=== PATIENT | male | born 1990 | race American Indian/Alaskan Native ===

== ENCOUNTER 2021-02-26 20:41 | Emergency (ER) | payer SELFPAY ==
[2021-02-26 21:18] VITALS: BP 156/100
[2021-02-26] MEDS ORDERED: ASPIRIN 81 MG TAB CHEW PO ONE (21:20)
--- NOTE | 2021-02-26 21:23 | Event Note ---
ED Screening Note Date of service: 02/26/21 Time: 21:22 ED Screening Note: 30-year-old male patient presents emergency department with complaints of pleuritic chest pain with associated dyspnea starting yesterday. No venous thromboembolism risk factors identified on history although on further interrogation he does endorse intermittent proximal left calf pain. No known history of coronary artery disease. No preceding trauma. Vital signs are stable. General: Awake, appropriately interactive, no acute distress. Neck: Supple. Full range of motion intact. Cardiovascular: Normal peripheral perfusion. Pulmonary: No respiratory distress. Patient is speaking normally without use of accessory muscles. Skin: No apparent rashes or lesions. Neurological: No facial asymmetry. Speech is clear. Follows commands. Patient is alert and oriented. Musculoskeletal: Moves all four extremities spontaneously with normal range of motion. Psych: Cooperative. Appropriate mood and affect. D-Dimer obtained; low pretest probability for venous thromboembolism. I have greeted and performed a focused rapid initial assessment of this patient. A comprehensive ED assessment and evaluation of the patient, analysis of all test results, and completion of the medical decision-making process will be c onducted by additional ED providers. This initial assessment/diagnostic orders/clinical plan/treatment(s) is/are subject to change based on patients health status, clinical progression and re-assessment. Further treatment and workup at subsequent clinical provider's discretion. Patient/guardian urged not to elope from the ED as their condition may be serious if not clinically assessed and managed.
[2021-02-26 21:41] LABS: Basophils % (Auto) 0.3 % (0.0-1.8); Eosinophils # (Auto) 0.1 K/mm3 (0.0-0.4); Hematocrit 44.8 % (35.5-45.6); Hemoglobin 14.5 gm/dl (11.8-15.2); Lymphocytes # (Auto) 1.9 K/mm3 (1.2-5.4); Lymphocytes % (Auto) 26.6 % (13.4-35.0); Mean Corpuscular HGB Conc 32 % (32-34); Mean Corpuscular Volume 82 fl (84-94); Monocytes # (Auto) 0.7 K/mm3 (0.0-0.8); Monocytes % (Auto) 9.5 % (0.0-7.3); Platelet Count 253 K/mm3 (140-440); Red Blood Count 5.49 M/mm3 (3.65-5.03); Red Cell Distribution Width 15.3 % (13.2-15.2)
--- NOTE | 2021-02-26 21:47 | XRay Report ---
CHEST 2 VIEWS INDICATION / CLINICAL INFORMATION: chest pain. COMPARISON: None available. FINDINGS: SUPPORT DEVICES: None. HEART / MEDIASTINUM: No significant abnormality. LUNGS / PLEURA: Patchy bilateral airspace disease No pneumothorax. ADDITIONAL FINDINGS: No significant additional findings. IMPRESSION: Patchy bilateral airspace disease is present. No prior exams for comparison Signer Name: Ez Tong MD FACR Signed: 02/26/2021 9:43 PM Workstation Name: [id number]
[2021-02-26 22:09] LABS: Alanine Aminotransferase 17 units/L (7-56); Albumin 4.2 g/dL (3.9-5); BUN/Creatinine Ratio 11; Blood Urea Nitrogen 11 mg/dL (9-20); Calcium 9.3 mg/dL (8.4-10.2); Hemolysis Index 11
[2021-02-27] MEDS ORDERED: LIDOCAINE-MPF (1%) 10 MG/1 ML VIAL 5 ML INFILTRATI ONE (01:26)
[2021-02-27] MEDS ORDERED: AZITHROMYCIN 250 MG TAB PO ONE (01:26)
--- NOTE | 2021-02-27 01:26 | Emergency Department Report ---
ED Chest Pain HPI - General Chief Complaint: Chest Pain Stated Complaint: CHEST PAIN/SOB Source: patient Mode of arrival: Ambulatory Limitations: No Limitations - History of Present Illness Initial Comments: Patient is a 30-year-old -[place] male with no past medical history presents to the ED with complaint of acute onset persistent dry cough, pleuritic chest pain, shortness of breath and generalized weakness for the last 1 week. Patient states that the chest pain is especially constant and that the shortness of breath is worse with any movement or exertion. Patient states that in the last 2 days, his symptoms have been worse especially while at work. Patient states that in the last 12 hours he has been feeling more weaker with persistent pleuritic chest pain. Patient denies dizziness, headache, nausea and vomiting, fever, chills, abdominal pain, diarrhea, dysuria, urinary frequency and urgency, sore throat, nasal and sinus congestion, syncope, palpitations, change in vision or body aches and pains. MD Complaint: chest pain (Substernal chest pain), other (shortnesness of breath; dry cough; generalized weakness) -: Sudden, week(s) (1) Onset: during rest, during exertion, awoke with symptoms Pain Location: substernal Pain Radiation: none Severity: moderate Severity scale (0 -10): 4 Quality: tightness, dull Consistency: constant Improves With: nothing Worsens With: other (Cough) re: dyspnea, other (Generalized weakness). denies: nausea, vomting, diaphoresis, sense of impending doom Other Symptoms: cough, other (Generalized weakness). denies: fever, syncope, rash, acid taste in mouth, leg swelling, palpitations, burping Treatments Prior to Arrival: none - Related Data On Oral Contraceptives: No Previous Rx's Medication Instructions Recorded Last Taken Type Albuterol Sulfate [Proventil Hfa] 1 - 2 puff IH Q6H PRN #1 hfa.aer.ad 02/27/21 Unknown Rx Benzonatate [Tessalon Perles] 100 mg PO Q8HR #30 capsule 02/27/21 Unknown Rx Ibuprofen [Motrin] 600 mg PO Q8H PRN #30 tablet 02/27/21 Unknown Rx levoFLOXacin [Levaquin] 750 mg PO QDAY #7 tablet 02/27/21 Unknown Rx Heart Score - HEART Score History: Slightly suspicious EKG: Normal Age: < 45 Risk factors: No known risk factors Troponin: < normal limit HEART Score: 0 - EKG Read Time Time EKG Completed: 21:22 EKG Read Time: 21:24 (NSR, 88 bpm; Long QT interval) - Critical Actions Critical Actions: 0-3 pts:0.9-1.7%risk of adverse cardiac event.Candidate for discharge ED Review of Systems ROS: Stated complaint: CHEST PAIN/SOB Other details as noted in HPI Constitutional: malaise, weakness. denies: chills, fever Eyes: denies: eye pain, eye discharge, vision change ENT: denies: ear pain, throat pain Respiratory: cough, shortness of breath, SOB with exertion. denies: wheezing Cardiovascular: chest pain (Substernal chest pain). denies: palpitations, dyspnea on exertion, orthopnea, syncope, paroxysmal nocturnal dyspnea Endocrine: no symptoms reported Gastrointestinal: denies: abdominal pain, nausea, vomiting, diarrhea Genitourinary: denies: urgency, dysuria Musculoskeletal: denies: back pain, joint swelling, arthralgia Skin: denies: rash, lesions Neurological: denies: headache, weakness, paresthesias Psychiatric: denies: anxiety, depression Hematological/Lymphatic: denies: easy bleeding, easy bruising ED Past Medical Hx - Medications Home Medications: Home Medications Medication Instructions Recorded Confirmed Last Taken Type Albuterol Sulfate [Proventil Hfa] 1 - 2 puff IH Q6H PRN #1 hfa.aer.ad 02/27/21 Unknown Rx Benzonatate [Tessalon Perles] 100 mg PO Q8HR #30 capsule 02/27/21 Unknown Rx Ibuprofen [Motrin] 600 mg PO Q8H PRN #30 tablet 02/27/21 Unknown Rx levoFLOXacin [Levaquin] 750 mg PO QDAY #7 tablet 02/27/21 Unknown Rx ED Physical Exam - General Limitations: No Limitations General appearance: alert, in no apparent distress - Head Head exam: Present: atraumatic, normocephalic, normal inspection - Eye Eye exam: Present: normal appearance, PERRL, EOMI Pupils: Present: normal accommodation - ENT ENT exam: Present: normal exam, normal orophraynx, mucous membranes moist, TM's normal bilaterally, normal external ear exam - Neck Neck exam: Present: normal inspection, full ROM - Respiratory Respiratory exam: Present: normal lung sounds bilaterally, chest wall tenderness (Palpable reproducible anterior chest wall tenderness). Absent: respiratory distress, wheezes, rales, rhonchi, accessory muscle use, decreased breath sounds, prolonged expiratory - Cardiovascular Cardiovascular Exam: Present: regular rate, normal rhythm, normal heart sounds. Absent: systolic murmur, diastolic murmur, rubs, gallop - GI/Abdominal GI/Abdominal exam: Present: soft, normal bowel sounds. Absent: tenderness, guarding, hyperactive bowel sounds, hypoactive bowel sounds - Extremities Exam Extremities exam: Present: normal inspection, full ROM, normal capillary refill. Absent: tenderness, pedal edema, joint swelling - Back Exam Back exam: Present: normal inspection, full ROM. Absent: tenderness, CVA tenderness (R), CVA tenderness (L), muscle spasm, paraspinal tenderness, vertebral tenderness - Neurological Exam Neurological exam: Present: alert, oriented X3, CN II-XII intact, normal gait, reflexes normal - Psychiatric Psychiatric exam: Present: normal affect, normal mood - Skin Skin exam: Present: warm, dry, intact, normal color. Absent: rash ED Course Vital Signs 02/26/21 21:16 Temperature 98.0 F Pulse Rate 95 H Respiratory 18 Rate Blood Pressure 156/100 O2 Sat by Pulse 96 Oximetry IAM score - Iam Score Age > 65: (0) No Aspirin use within the Past 7 Days: (0) No 3 or more CAD Risk Factors: (0) No 2 or more Angina events in past 24 hrs: (0) No Known CAD with more than 50% Stenosis: (0) No Elevated Cardiac Markers: (0) No ST Deviation Greater than 0.5mm: (0) No IAM Score: 0 ED Medical Decision Making - Lab Data Result diagrams: 02/26/21 21:27 02/26/21 21:27 - EKG Data EKG shows normal: sinus rhythm Rate: normal - EKG Data Interpretation: normal EKG 02/27/21 02:05 EKG shows normal sinus rhythm with a ventricular rate of [address] or T wave abnormalities but prolonged QT intervals. - Radiology Data Radiology results: report reviewed, image reviewed [facility] [address] [place] [address] XRay Report Signed Patient: RIGOBERTO THACKER MR#: [id number] : 1990 Acct:[id number] Age/Sex: 30 / M ADM Date: 02/26/21 Loc: ED Attending Dr: Ordering Physician: CLIFTON KWAN Date of Service: 02/26/21 Procedure(s): XR chest routine 2V Accession Number(s): [id number] cc: CLIFTON KWAN Fluoro Time In Minutes: CHEST 2 VIEWS INDICATION / CLINICAL INFORMATION: chest pain. COMPARISON: None available. FINDINGS: SUPPORT DEVICES: None. HEART / MEDIASTINUM: No significant abnormality. LUNGS / PLEURA: Patchy bilateral airspace disease No pneumothorax. ADDITIONAL FINDINGS: No significant additional findings. IMPRESSION: Patchy bilateral airspace disease is present. No prior exams for comparison Signer Name: Ez Tong MD FACR Signed: 02/26/2021 9:43 PM Workstation Name: [id number] Transcribed By: MS Dictated By: Ez Tong MD Electronically Authenticated By: Ez Tong MD Signed Date/Time: 02/26/212142 DD/ 41 TD/TT: - Medical Decision Making This is a 30-year-old -[place] male with no past medical history presents to the ED with complaint of acute onset persistent dry cough, pleuritic chest pain, shortness of breath and generalized weakness for the last 1 week. Patient states that the chest pain is especially constant and that the shortness of breath is worse with any movement or exertion. Patient states that in the last 2 days, his symptoms have been worse especially while at work. Patient states that in the last 12 hours he has been feeling more weaker with persistent pleuritic chest pain. In the ED, patient is alert and oriented x4 and is not in any distress. EKG shows normal sinus rhythm with a ventricular rate of [address] or T wave abnormalities but prolonged QT intervals. Lab test results were reviewed and are all nonactionable including initial and 3-hour troponin levels. Chest x-ray showed patchy bilateral airspace disease is present consistent with community-acquired pneumonia. Patient's heart score is 0 and patient is PERC negative per Wells criteria. Patient was treated in the ED with Rocephin 1 g intramuscular injection and azithromycin 500 mg p.o. x1. On reevaluation, patient is hemodynamically stable. Patient was discharged home on medications including antibiotics for suspected community-acquired pneumonia, pain medications, albuterol inhaler and cough medications and was advised to follow-up with his primary care physician in 3 to 5 days for reevaluation. Patient was advised return to the ED immediately if symptoms get worse. - Differential Diagnosis ACS; PE; pneumonia; bronchitis; CHF; COVID-19; costochondritis Critical Care Time: Yes Critical care time in (mins) excluding proc time.: 35 Critical care attestation.: If time is entered above; I have spent that time in minutes in the direct care of this critically ill patient, excluding procedure time. Critical Care Time: 35 minutes ED Disposition Clinical Impression: Nonspecific chest pain, Shortness of breath Community acquired pneumonia Qualifiers: Laterality: unspecified laterality Qualified Code(s): J18.9 - Pneumonia, unspecified organism Disposition: TO HOME OR SELFCARE Is pt being admited?: No Does the pt Need Aspirin: No Condition: Stable Instructions: Bacterial Pneumonia (ED), Shortness of Breath, Adult, [id number], Nonspecific Chest Pain, Adult, [id number], Nonspecific Chest Pain, Adult, Community-Acquired Pneumonia, Adult, [id number] Additional Instructions: All lab test results were reviewed and are all nonactionable. Chest x-ray shows patchy bilateral infiltrates consistent with community-acquired pneumonia. Therefore take antibiotics until finished, use the albuterol inhaler as needed for shortness of breath and pain medication as needed. Drink plenty of fluids and follow-up with the primary care physician in 3 to 5 days for reevaluation. Return to the ED immediately if symptoms get worse. Prescriptions: levoFLOXacin [Levaquin] 750 mg PO QDAY #7 tablet Ibuprofen [Motrin] 600 mg PO Q8H PRN #30 tablet PRN Reason: Pain Albuterol Sulfate [Proventil Hfa] 1 - 2 puff IH Q6H PRN #1 hfa.aer.ad PRN Reason: Dyspnea Benzonatate [Tessalon Perles] 100 mg PO Q8HR #30 capsule Referrals: [facility] [Provider Group] - 3-5 Days Time of Disposition: 02:11 Print Language: CZECH
--- NOTE | 2021-02-28 11:22 | Electrocardiograph Report ---
[facility] Test Date: 2021-02-26 Test Time: 21:22:16 Pat Name: RIGOBERTO THACKER Department: Room: Gender: M [employer]: MELONY : 1990 Requested By: FLORENTIN GOLDBERG Order Number: [id number] Reading MD: Jameson Shaffer Measurements Intervals [place] Rate: 88 P: 54 CA: 143 QRS: 3 QRSD: 80 T: -3 QT: 410 QTc: 496 Interpretive Statements Sinus rhythm No previous ECG available for comparison Electronically Signed On 02-28-2021 11:22:18 EDT by Jameson Shaffer
== END 2021-02-27 03:44 | disposition home or self-care (01) ==
LOC: ED 20:41
DX: J16.8 Pneumonia due to other specified infectious organisms (principal); Z79.899 Other long term (current) drug therapy
CPT/HCPCS: 36415; 71046; 80053; 83735; 84484; 85025; 85379; 93005; 96372; 99283; J0696

== ENCOUNTER 2021-06-11 13:29 | Emergency (ER) | payer SELFPAY ==
--- NOTE | 2021-06-11 13:59 | Event Note ---
ED Screening Note Date of service: 06/11/21 Time: 13:57 ED Screening Note: 31-year-old male patient presents to the emergency department complaints of right ankle pain starting 2 days ago. Patient states he accidentally twisted his ankle while stepping off of the bus. No resulting head injury or loss of consciousness. Patient took Naprosyn and Ibuprofen with limited relief. Pain is worse with weightbearing. General: Awake, appropriately interactive, no acute distress. Neck: Supple. Full range of motion intact. Cardiovascular: Normal peripheral perfusion. Pulmonary: No respiratory distress. Patient is speaking normally without use of accessory muscles. Skin: No apparent rashes or lesions. Neurological: No facial asymmetry. Speech is clear. Follows commands. Patient is alert and oriented. Musculoskeletal: Tenderness to palpation along the right lateral malleolus without obvious deformity or dislocation. Distal neurovascular and motor/sensory function intact. Psych: Cooperative. Appropriate mood and affect. I have greeted and performed a focused rapid initial assessment of this patient. A comprehensive ED assessment and evaluation of the patient, analysis of all test results, and completion of the medical decision-making process will be conducted by additional ED providers. This initial assessment/diagnostic orders/clinical plan/treatment(s) is/are subject to change based on patients health status, clinical progression and re-assessment. Further treatment and workup at subsequent clinical provider's discretion. Patient/guardian urged not to elope from the ED as their condition may be serious if not clinically assessed and managed.
[2021-06-11 14:02] VITALS: BP 155/94
--- NOTE | 2021-06-11 14:25 | XRay Report ---
XR ankle 3+V RT INDICATION / CLINICAL INFORMATION: trauma; tenderness to lateral malleolus. COMPARISON: None available. FINDINGS: BONES/JOINT(S): There is a nondisplaced avulsion fracture of the tip of the lateral malleolus. No add itional fracture identified. No significant degenerative changes. SOFT TISSUES: No significant abnormality. ADDITIONAL FINDINGS: None. Signer Name: Chauncey Maldonado MD Signed: 06/11/2021 2:20 PM Workstation Name: [id number]
[2021-06-11] MEDS ORDERED: IBUPROFEN 800 MG TAB PO ONE (16:09)
--- NOTE | 2021-06-11 16:12 | Emergency Department Report ---
ED Lower Extremity HPI - General Chief Complaint: Extremity Injury, Lower Stated Complaint: SPRAINED RIGHT ANKLE Time Seen by Provider: 06/11/21 16:08 Source: patient Mode of arrival: Ambulatory Limitations: No Limitations - History of Present Illness Initial Comments: Patient is a 31-year-old male that comes to the ER with right ankle pain. He states that he rolled the ankle the night prior to coming to the ER. He denies any other injury. He states that he thought it was fine but he woke up in the ankle was swollen this morning so he came to the ER. He is ambulatory but with a limp to ACC. Patient is taking nothing for the pain prior to arrival. He has not applied ice to the involved area. MD Complaint: ankle injury -: Sudden, days(s) Injury: Ankle: Right Type of Injury: unknown Place: home Severity: mild Worsens With: weight bearing - Related Data Previous Rx's Medication Instructions Recorded Last Taken Type Albuterol Sulfate [Proventil Hfa] 1 - 2 puff IH Q6H PRN #1 hfa.aer.ad 02/27/21 Unknown Rx Benzonatate [Tessalon Perles] 100 mg PO Q8HR #30 capsule 02/27/21 Unknown Rx Ibuprofen [Motrin] 600 mg PO Q8H PRN #30 tablet 02/27/21 Unknown Rx levoFLOXacin [Levaquin] 750 mg PO QDAY #7 tablet 02/27/21 Unknown Rx Allergies Allergy/AdvReac Type Severity Reaction Status Date / Time No Known Allergies Allergy Unverified 06/11/21 13:55 ED Review of Systems ROS: Stated complaint: SPRAINED RIGHT ANKLE Other details as noted in HPI Comment: All other systems reviewed and negative ED Past Medical Hx - Past Medical History Previous Medical History?: No - Surgical History Past Surgical History?: No - Family History Family history: no significant - Social History Smoking Status: Never Smoker Substance Use Type: None - Medications Home Medications: Home Medications Medication Instructions Recorded Confirmed Last Taken Type Albuterol Sulfate [Proventil Hfa] 1 - 2 puff IH Q6H PRN #1 hfa.aer.ad 02/27/21 Unknown Rx Benzonatate [Tessalon Perles] 100 mg PO Q8HR #30 capsule 02/27/21 Unknown Rx Ibuprofen [Motrin] 600 mg PO Q8H PRN #30 tablet 02/27/21 Unknown Rx levoFLOXacin [Levaquin] 750 mg PO QDAY #7 tablet 02/27/21 Unknown Rx ED Physical Exam - General Limitations: No Limitations General appearance: alert, in no apparent distress - Head Head exam: Present: atraumatic, normocephalic - Eye Eye exam: Present: normal appearance - ENT ENT exam: Present: mucous membranes moist - Neck Neck exam: Present: normal inspection - Respiratory Respiratory exam: Present: normal lung sounds bilaterally. Absent: respiratory distress - Cardiovascular Cardiovascular Exam: Present: regular rate, normal rhythm. Absent: systolic murmur, diastolic murmur, rubs, gallop - GI/Abdominal GI/Abdominal exam: Present: soft, normal bowel sounds - Rectal Rectal exam: Present: deferred - Extremities Exam Extremities exam: Present: normal inspection - Expanded Lower Extremity Exam Right Lower Leg exam: Present: normal inspection Ankle exam: Present: full ROM, tenderness, swelling (MILD LAT MAL AREA ) Foot/Toe exam: Present: normal inspection - Back Exam Back exam: Present: normal inspection - Neurological Exam Neurological exam: Present: alert, oriented X3 - Psychiatric Psychiatric exam: Present: normal affect, normal mood - Skin Skin exam: Present: warm, dry, intact, normal color. Absent: rash ED Course Vital Signs 06/11/21 14:01 Temperature 98 F Pulse Rate 94 H Respiratory 16 Rate Blood Pressure 155/94 [Right] O2 Sat by Pulse 98 Oximetry ED Lower Extremity MDM - Radiology Data Radiology results: report reviewed, image reviewed SEE REPORT - Medical Decision Making XRAY NOTED SPLINT APPLIED NEUROVASC INTACT BEFORE AND AFTER SPLINTING ICE CRUTCHES MEDICATED FOR PAIN Vital Signs 06/11/21 14:01 Temperature 98 F Pulse Rate 94 H Respiratory 16 Rate Blood Pressure 155/94 [Right] O2 Sat by Pulse 98 Oximetry PT DC HOME WITH DC PLAN OF CARE INCLUDING RICE THERAPY AND USE OF CRUTCHES UNTIL SEEN BY ORTHO. HE HAS BEEN GIVEN ORTHO REFERRAL. PT VERBALIZES UNDERSTANDING OF DC PLAN OF CARE. - Differential Diagnosis ro fx Critical care attestation.: If time is entered above; I have spent that time in minutes in the direct care of this critically ill patient, excluding procedure time. ED Disposition Clinical Impression: Ankle fracture Disposition: DC-01 TO HOME OR SELFCARE Is pt being admited?: No Does the pt Need Aspirin: No Condition: Stable Instructions: Nondisplaced Fibular Ankle Fracture Treated With Immobilization, Adult Additional Instructions: ICE REST ELEVATE MOTRIN OR TYLENOL FOR PAIN SPLINT/CRUTCHES UNTIL SEEN BY ORTHO MAKE APPNT FOR AMY WITH ORTHO MD REFERRAL BELOW TAKE DISC WITH YOU Referrals: NISH SANDERS MD [Staff Physician] - 3-5 Days Time of Disposition: 16:09
== END 2021-06-11 16:54 | disposition home or self-care (01) ==
LOC: ED 13:29
DX: S82.891A Other fracture of right lower leg, initial encounter for closed fracture (principal); Z79.899 Other long term (current) drug therapy; X50.1XXA Overexertion from prolonged static or awkward postures, initial encounter; Y93.89 Activity, other specified; Y92.89 Other specified places as the place of occurrence of the external cause; Y99.8 Other external cause status
CPT/HCPCS: 99283

== ENCOUNTER 2021-06-29 21:33 | Emergency (ER) | payer SELFPAY | END 2021-06-29 23:25 | LOC: ED 21:33 | DX: M25.571 Pain in right ankle and joints of right foot (principal); Z53.21 Procedure and treatment not carried out due to patient leaving prior to being seen by health care provider ==

== ENCOUNTER 2021-11-05 14:36 | Emergency (ER) | payer SELFPAY ==
[2021-11-05] MEDS ORDERED: IPRATROPIUM/ALBUTEROL SULFATE 3 ML AMPUL.NEB IH ONE (15:28)
[2021-11-05] MEDS ORDERED: methylPREDNISolone Sod Succinate 125 MG/2 ML INJ IV ONE (15:28)
--- NOTE | 2021-11-05 15:29 | XRay Report ---
CHEST 2 VIEWS INDICATION: chest pain. COMPARISON: 02/26/2021 FINDINGS: Support devices: None. Heart: Within normal limits. Lungs/pleura: There is diffuse prominence of the interstitium which is unchanged. No acute infiltrat e, pleural effusion or pneumothorax. Additional findings: None. IMPRESSION: No acute findings. Prominent interstitium throughout both lungs suggestive of interstitial lung disea se. No change since 02/26/2021. Signer Name: Josh Hoffmann Jr, MD Signed: 11/05/2021 3:24 PM Workstation Name: [id number]
--- NOTE | 2021-11-05 15:31 | Emergency Department Report ---
- General Chief Complaint: Chest Pain Stated Complaint: CHEST PAIN, HARD TO BREATHE Time Seen by Provider: 11/05/21 15:06 Source: patient Mode of arrival: Ambulatory Limitations: No Limitations - History of Present Illness Initial Comments: 31-year-old -Israeli obese male presents to the ER today with complaints of chest pain, SOB, mild wheezing and URI symptoms. Patient states that symptoms started about 2 weeks ago, but he feels like his symptoms are getting worse. He is concerned that he may have pneumonia as he had similar symptoms last year. He reports substernal chest pain, with a nonproductive but also productive cough, while wheezing, shortness of breath, rhinorrhea, nasal congestion and generalized weakness. He states that he did Covid 19 vaccine, the [employer] in July 2021. He denies any apparent ill contacts or recent travel. He states that he does not smoke. He denies any illicit drug use. He states that he has had asthma as a child, but grew out of it and he denies any other significant past history. MD Complaint: rhinorrhea, other (Chest pain, SOB, mild wheezing, ) -: week(s) (2) - Related Data Previous Rx's Medication Instructions Recorded Last Taken Type Ibuprofen [Motrin] 600 mg PO Q8H PRN #30 tablet 02/27/21 Unknown Rx levoFLOXacin [Levaquin] 750 mg PO QDAY #7 tablet 02/27/21 Unknown Rx ALBUTEROL NEB's [Proventil 0.083% 2.5 mg IH QID PRN #30 neb 11/05/21 Unknown Rx NEBS] Albuterol Sulfate [Proventil Hfa] 1 - 2 puff IH Q6H PRN #1 hfa.aer.ad 11/05/21 Unknown Rx Benzonatate [Tessalon Perles] 100 mg PO Q8HR #30 capsule 11/05/21 Unknown Rx Cetirizine HCl [Zyrtec 10mg tab] 10 mg PO DAILY #30 tablet 11/05/21 Unknown Rx Nebulizer [Compact Compressor 1 each MC DAILY #1 each 11/05/21 Unknown Rx Nebulizer] predniSONE [Deltasone] 50 mg PO QDAY #5 tab 11/05/21 Unknown Rx Allergies Allergy/AdvReac Type Severity Reaction Status Date / Time No Known Allergies Allergy Verified 11/05/21 14:41 ED Review of Systems ROS: Stated complaint: CHEST PAIN, HARD TO BREATHE Other details as noted in HPI Comment: All other systems reviewed and negative Constitutional: denies: chills, fever Eyes: denies: eye pain, eye discharge, vision change ENT: denies: ear pain, throat pain, dental pain, hearing loss, epistaxis, congestion Respiratory: cough, shortness of breath, wheezing Cardiovascular: chest pain. denies: palpitations Gastrointestinal: denies: abdominal pain, nausea, diarrhea, constipation, hematemesis, melena, hematochezia Genitourinary: denies: urgency, dysuria, frequency, hematuria, discharge, testicular pain, testicular mass Musculoskeletal: denies: back pain, joint swelling, arthralgia Skin: denies: rash, lesions Neurological: denies: headache, weakness, numbness, paresthesias, confusion, abnormal gait, vertigo Psychiatric: denies: anxiety, depression, auditory hallucinations, visual hallucinations, homicidal thoughts, suicidal thoughts Hematological/Lymphatic: denies: easy bleeding, easy bruising, swollen glands ED Past Medical Hx - Social History Smoking Status: Never Smoker Substance Use Type: None - Medications Home Medications: Home Medications Medication Instructions Recorded Confirmed Last Taken Type Ibuprofen [Motrin] 600 mg PO Q8H PRN #30 tablet 02/27/21 Unknown Rx levoFLOXacin [Levaquin] 750 mg PO QDAY #7 tablet 02/27/21 Unknown Rx ALBUTEROL NEB's [Proventil 0.083% 2.5 mg IH QID PRN #30 neb 11/05/21 Unknown Rx NEBS] Albuterol Sulfate [Proventil Hfa] 1 - 2 puff IH Q6H PRN #1 hfa.aer.ad 11/05/21 Unknown Rx Benzonatate [Tessalon Perles] 100 mg PO Q8HR #30 capsule 11/05/21 Unknown Rx Cetirizine HCl [Zyrtec 10mg tab] 10 mg PO DAILY #30 tablet 11/05/21 Unknown Rx Nebulizer [Compact Compressor 1 each MC DAILY #1 each 11/05/21 Unknown Rx Nebulizer] predniSONE [Deltasone] 50 mg PO QDAY #5 tab 11/05/21 Unknown Rx ED Physical Exam - General Limitations: No Limitations General appearance: alert, in no apparent distress, obese - Head Head exam: Present: atraumatic, normocephalic, normal inspection - Eye Eye exam: Present: normal appearance, PERRL, EOMI Pupils: Present: normal accommodation - ENT ENT exam: Present: normal exam, mucous membranes moist, TM's normal bilaterally - Respiratory Respiratory exam: Present: normal lung sounds bilaterally. Absent: respiratory distress, wheezes, rales, rhonchi - Cardiovascular Cardiovascular Exam: Present: regular rate, normal rhythm, normal heart sounds - GI/Abdominal GI/Abdominal exam: Present: soft. Absent: distended, tenderness, guarding, rebound - Extremities Exam Extremities exam: Present: normal inspection, full ROM, normal capillary refill. Absent: pedal edema, calf tenderness - Neurological Exam Neurological exam: Present: alert, oriented X3, CN II-XII intact, normal gait - Psychiatric Psychiatric exam: Present: normal affect, normal mood - Skin Skin exam: Present: intact ED Course Vital Signs 11/05/21 11/05/21 11/05/21 14:41 16:33 17:23 Temperature 98.0 F 98.3 F Pulse Rate 90 89 Pulse Rate [ 103 H Anterior Bilateral Throughout] Respiratory 15 18 Rate Respiratory 26 H Rate [Anterior Bilateral Throughout] Blood Pressure 162/98 Blood Pressure 162/97 [Right] O2 Sat by Pulse 94 98 Oximetry ED Medical Decision Making - Lab Data Result diagrams: 11/05/21 16:14 11/05/21 16:14 - EKG Data EKG shows normal: sinus rhythm Rate: normal (98) - EKG Data Interpretation: normal EKG - Radiology Data Radiology results: report reviewed Patient: RIGOBERTO THACKER MR#: [id number] : 1990 Acct:[id number] Age/Sex: 31 / M ADM Date: 11/05/21 Loc: ED Attending Dr: Ordering Physician: HERRERA FLOYD Date of Service: 11/05/21 Procedure(s): XR chest routine 2V Accession Number(s): [id number] cc: HERRERA FLOYD Fluoro Time In Minutes: CHEST 2 VIEWS INDICATION: chest pain. COMPARISON: 02/26/2021 FINDINGS: Support devices: None. Heart: Within normal limits. Lungs/pleura: There is diffuse prominence of the interstitium which is unc hanged. No acute infiltrate, pleural effusion or pneumothorax. Additional findings: None. IMPRESSION: No acute findings. Prominent interstitium throughout both lungs suggestive of interstitial lung disease. No change since 02/26/2021. Signer Name: Josh Hoffmann Jr, MD Signed: 11/05/2021 3:24 PM Workstation Name: [id number] Transcribed By: MONAE Dictated By: JOSH HOFFMANN JR, MD Electronically Authenticated By: JOSH HOFFMANN JR, MD Signed Date/Time: 11/05/211523 DD/ 23 TD/TT: - Medical Decision Making 1733: Work-up today is unremarkable --CBC, CMP and troponin negative. EKG shows normal sinus rhythm without any STEMI other acute ischemic changes or significant dysrhythmias. Chest x-ray shows no acute findings. Patient did report some improvement of his symptoms after DuoNeb and Solu-Medrol. He states that he still has some discomfort in his central chest but is mainly when he coughs. Repeat lung exam, clear to auscultation and patient is not in any acute respiratory distress. His repeat vital signs are stable including the fact that he is afebrile, and not hypoxic and not tachycardic. I suspect that patient symptoms are more likely respiratory related probably from a bronchitis and bronchospasm. At this time I do not suspect unstable angina (other than his obesity has no other risk factors for heart disease), aortic dissection, PE (PERC score 0), or any other emergent conditions warranting additional testing, specialist consult or admission at this time. Discussed all lab results and imaging results with patient discussed suspected diagnosis and treatment plan with patient. Recommend follow-up with his primary care doctor next week. Patient understands to return to the ER if his symptoms worsens. Critical care attestation.: If time is entered above; I have spent that time in minutes in the direct care of this critically ill patient, excluding procedure time. ED Disposition Clinical Impression: Acute bronchitis with bronchospasm Disposition: 01 HOME / SELF CARE / HOMELESS Is pt being admited?: No Does the pt Need Aspirin: No Condition: Stable Instructions: Acute Bronchitis, Adult, Agay-bi-Vgiv, Acute Bronchitis (ED) Additional Instructions: I recommend that you take the prednisone as prescribed and use albuterol inhaler directed to help with shortness of breath or wheezing. I recommend that you take the Tessalon Perles and the Zyrtec as well to help with cough and any upper respiratory symptoms. I recommend following up with your primary care doctor next week. Return to the ER if at any point your symptoms worsens in any way. Prescriptions: Nebulizer [Compact Compressor Nebulizer] 1 each MC DAILY #1 each predniSONE [Deltasone] 50 mg PO QDAY #5 tab ALBUTEROL NEB's [Proventil 0.083% NEBS] 2.5 mg IH QID PRN #30 neb PRN Reason: Wheezing/SOB Albuterol Sulfate [Proventil Hfa] 1 - 2 puff IH Q6H PRN #1 hfa.aer.ad PRN Reason: Dyspnea Benzonatate [Tessalon Perles] 100 mg PO Q8HR #30 capsule Cetirizine HCl [Zyrtec 10mg tab] 10 mg PO DAILY #30 tablet Referrals: AMANDA GUTHRIE MD [Staff Physician] - 3-5 Days Forms: Work/School Release Form(ED) Time of Disposition: 17:03
[2021-11-05 16:32] LABS: Basophils % (Auto) 0.3 % (0.0-1.8); Eosinophils # (Auto) 0.1 K/mm3 (0.0-0.4); Eosinophils % (Auto) 1.2 % (0.0-4.3); Lymphocytes # (Auto) 1.6 K/mm3 (1.2-5.4); Lymphocytes % (Auto) 23.3 % (13.4-35.0); Mean Corpuscular HGB Conc 30 % (32-34); Mean Corpuscular Volume 82 fl (84-94); Monocytes # (Auto) 0.6 K/mm3 (0.0-0.8); Monocytes % (Auto) 8.5 % (0.0-7.3); Platelet Count 249 K/mm3 (140-440); Red Blood Count 5.61 M/mm3 (3.65-5.03); Red Cell Distribution Width 15.4 % (13.2-15.2)
[2021-11-05 16:34] LABS: Hematocrit 45.9 % (35.5-45.6); Hemoglobin 13.9 gm/dl (11.8-15.2)
[2021-11-05 16:56] LABS: Alanine Aminotransferase 29 units/L (7-56); Albumin 4.3 g/dL (3.9-5); BUN/Creatinine Ratio 11; Blood Urea Nitrogen 11 mg/dL (9-20); Calcium 9.5 mg/dL (8.4-10.2); Hemolysis Index 12
[2021-11-05 17:24] VITALS: BP 162/97
[2021-11-05] MEDS ORDERED: HYDROcodone/ACETAMINOPHEN 5-325 MG TAB PO ONE (17:26)
--- NOTE | 2021-11-06 10:33 | Electrocardiograph Report ---
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
== END 2021-11-05 17:33 | disposition home or self-care (01) ==
LOC: ED 14:36
DX: J40 Bronchitis, not specified as acute or chronic (principal); J34.89 Other specified disorders of nose and nasal sinuses; R05.9 Cough, unspecified; R09.81 Nasal congestion; R53.1 Weakness
CPT/HCPCS: 36415; 71046; 80053; 84484; 85025; 93005; 94644; 96374; 99284; J2930

== ENCOUNTER 2022-07-21 14:27 | Emergency (ER) | payer SELFPAY ==
[2022-07-21 14:36] VITALS: BP 152/109
--- NOTE | 2022-07-21 15:05 | XRay Report ---
XR chest routine 2V INDICATION / CLINICAL INFORMATION: Chest Pain. COMPARISON: 11/05/2021 FINDINGS: SUPPORT DEVICES: None. HEART /PULMONARY VASCULATURE: No significant abnormality. LUNGS / PLEURA: Diffuse increased interstitial markings again noted, without significant interval rodrigo nge from prior radiograph from 11/05/2021. No focal airspace consolidation. No sizable pleural effusi on. No pneumothorax. ADDITIONAL FINDINGS: No significant additional findings. IMPRESSION: No significant change in diffuse increased interstitial markings, likely reflecting chronic interstit ial lung disease. No evidence of superimposed acute infiltrate. Signer Name: Eliceo Balderas MD Signed: 07/21/2022 3:01 PM Workstation Name: [id number]
[2022-07-21 15:43] LABS: Alanine Aminotransferase 31 units/L (7-56); Albumin 4.8 g/dL (3.9-5); BUN/Creatinine Ratio 8; Blood Urea Nitrogen 9 mg/dL (9-20); Calcium 9.7 mg/dL (8.4-10.2); Hemolysis Index 3
[2022-07-21 15:53] LABS: Basophils % (Auto) 0.4 % (0.0-1.8); Eosinophils # (Auto) 0.1 K/mm3 (0.0-0.4); Eosinophils % (Auto) 0.9 % (0.0-4.3); Hematocrit 46.2 % (35.5-45.6); Hemoglobin 14.8 gm/dl (11.8-15.2); Lymphocytes # (Auto) 1.7 K/mm3 (1.2-5.4); Lymphocytes % (Auto) 26.6 % (13.4-35.0); Mean Corpuscular HGB Conc 32 % (32-34); Mean Corpuscular Volume 82 fl (84-94); Monocytes # (Auto) 0.6 K/mm3 (0.0-0.8); Monocytes % (Auto) 9.5 % (0.0-7.3); Platelet Count 266 K/mm3 (140-440); Red Blood Count 5.61 M/mm3 (3.65-5.03); Red Cell Distribution Width 15.1 % (13.2-15.2)
--- NOTE | 2022-07-22 18:08 | Electrocardiograph Report ---
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
== END 2022-07-22 09:47 | disposition left against medical advice (07) ==
LOC: ED 14:27
DX: R07.9 Chest pain, unspecified (principal); Z53.21 Procedure and treatment not carried out due to patient leaving prior to being seen by health care provider
CPT/HCPCS: 36415; 71046; 80053; 84484; 85025; 93005

== ENCOUNTER 2022-07-26 23:16 | Emergency (ER) | payer SELFPAY ==
--- NOTE | 2022-07-27 00:05 | XRay Report ---
CHEST 2 VIEWS INDICATION / CLINICAL INFORMATION: Upper Respiratory Infection. COMPARISON: 2 views of the chest from 07/21/2022. FINDINGS: SUPPORT DEVICES: None. HEART / MEDIASTINUM: No significant abnormality. LUNGS / PLEURA: There are increased bilateral pulmonary opacities, especially along the upper lungs. No significant pleural effusion. No pneumothorax. ADDITIONAL FINDINGS: No significant additional findings. IMPRESSION: Increased bilateral pulmonary opacities likely representing an acute infiltrative process superimpose d on chronic interstitial disease. Signer Name: Elmer Aguirre MD Signed: 07/27/2022 12:00 AM Workstation Name: [id number]
[2022-07-27 05:07] VITALS: BP 170/87
[2022-07-27] MEDS ORDERED: BENZONATATE 100 MG CAP PO ONE (08:57)
[2022-07-27] MEDS ORDERED: LIDOCAINE-MPF (1%) 10 MG/1 ML VIAL 5 ML INFILTRATI ONE (08:57)
[2022-07-27] MEDS ORDERED: IBUPROFEN 800 MG TAB PO ONE (08:58)
--- NOTE | 2022-07-27 09:56 | Emergency Department Report ---
- General Chief Complaint: Upper Respiratory Infection Stated Complaint: CLAUDE Time Seen by Provider: 07/27/22 08:35 Source: patient Mode of arrival: Ambulatory Limitations: No Limitations - History of Present Illness Initial Comments: This is a 32-year-old male nontoxic, well nourished in appearance, no acute signs of distress presents to the ED with c/o of productive cough, subjective fever, chills, body aches, rhinorrhea, nasal congestion x several days. Patient denies being COVID vaccinated. Patient describes productive cough as yellow mucus production. Patient denies any sick contacts. Patient denies any recent travels, long car, recent hospital stays. Patient denies any calf pain or calf tenderness. Patient denies any chest pain, short of breath, nausea, vomiting, hemoptysis, numbness, tingling, headache or stiff neck. Patient denies any allergies. MD Complaint: fever, cough, rhinorrhea, nasal congestion -: days(s) Severity: mild Severity scale (0 -10): 3 Quality: aching Consistency: constant Improves With: nothing Worsens With: nothing Associated Symptoms: fever, chills, rhinorrhea, nasal congestion, cough. denies: myalgias, diaphoresis, headache, sore throat, stiff neck, chest pain, shortness of breath, abdominal pain, nausea, vomiting, diarrhea, dysuria, rash, confusion, right sweats, weight loss, epistaxis, hoarseness, ear pain Treatments Prior to Arrival: none - Related Data Previous Rx's Medication Instructions Recorded Last Taken Type Ibuprofen [Motrin] 600 mg PO Q8H PRN #30 tablet 02/27/21 Unknown Rx levoFLOXacin [Levaquin] 750 mg PO QDAY #7 tablet 02/27/21 Unknown Rx ALBUTEROL NEB's [Proventil 0.083% 2.5 mg IH QID PRN #30 neb 11/05/21 Unknown Rx NEBS] Albuterol Sulfate [Proventil Hfa] 1 - 2 puff IH Q6H PRN #1 hfa.aer.ad 11/05/21 Unknown Rx Benzonatate [Tessalon Perles] 100 mg PO Q8HR #30 capsule 11/05/21 Unknown Rx Cetirizine HCl [Zyrtec 10mg tab] 10 mg PO DAILY #30 tablet 11/05/21 Unknown Rx Nebulizer [Compact Compressor 1 each MC DAILY #1 each 11/05/21 Unknown Rx Nebulizer] predniSONE [Deltasone] 50 mg PO QDAY #5 tab 11/05/21 Unknown Rx Azithromycin [Zithromax Z-AUGUST] 250 mg PO DAILY #6 tab 07/27/22 Unknown Rx Benzonatate [Tessalon Perles] 100 mg PO Q8HR PRN #12 cap 07/27/22 Unknown Rx Allergies Allergy/AdvReac Type Severity Reaction Status Date / Time No Known Allergies Allergy Verified 07/21/22 14:37 ED Review of Systems ROS: Stated complaint: CLAUDE Other details as noted in HPI Comment: All other systems reviewed and negative Constitutional: chills, fever Eyes: denies: eye pain, eye discharge, vision change ENT: congestion. denies: ear pain, throat pain Respiratory: cough. denies: shortness of breath, wheezing Cardiovascular: denies: chest pain, palpitations Endocrine: no symptoms reported Gastrointestinal: denies: abdominal pain, nausea, diarrhea Genitourinary: denies: urgency, dysuria Musculoskeletal: denies: back pain, joint swelling, arthralgia Skin: denies: rash, lesions Neurological: denies: headache, weakness, paresthesias Psychiatric: denies: anxiety, depression Hematological/Lymphatic: denies: easy bleeding, easy bruising ED Past Medical Hx - Past Medical History Previous Medical History?: Yes Hx Hypertension: Yes - Surgical History Past Surgical History?: No - Social History Smoking Status: Never Smoker Substance Use Type: None - Medications Home Medications: Home Medications Medication Instructions Recorded Confirmed Last Taken Type Ibuprofen [Motrin] 600 mg PO Q8H PRN #30 tablet 02/27/21 Unknown Rx levoFLOXacin [Levaquin] 750 mg PO QDAY #7 tablet 02/27/21 Unknown Rx ALBUTEROL NEB's [Proventil 0.083% 2.5 mg IH QID PRN #30 neb 11/05/21 Unknown Rx NEBS] Albuterol Sulfate [Proventil Hfa] 1 - 2 puff IH Q6H PRN #1 hfa.aer.ad 11/05/21 Unknown Rx Benzonatate [Tessalon Perles] 100 mg PO Q8HR #30 capsule 11/05/21 Unknown Rx Cetirizine HCl [Zyrtec 10mg tab] 10 mg PO DAILY #30 tablet 11/05/21 Unknown Rx Nebulizer [Compact Compressor 1 each MC DAILY #1 each 11/05/21 Unknown Rx Nebulizer] predniSONE [Deltasone] 50 mg PO QDAY #5 tab 11/05/21 Unknown Rx Azithromycin [Zithromax Z-AUGUST] 250 mg PO DAILY #6 tab 07/27/22 Unknown Rx Benzonatate [Tessalon Perles] 100 mg PO Q8HR PRN #12 cap 07/27/22 Unknown Rx ED Physical Exam - General Limitations: No Limitations General appearance: alert, in no apparent distress - Head Head exam: Present: atraumatic, normocephalic - Eye Eye exam: Present: normal appearance - ENT ENT exam: Present: normal exam, normal orophraynx - Neck Neck exam: Present: normal inspection, full ROM. Absent: tenderness, meningismus, lymphadenopathy - Respiratory Respiratory exam: Present: normal lung sounds bilaterally. Absent: respiratory distress, wheezes, rales, rhonchi, stridor, chest wall tenderness, accessory muscle use, decreased breath sounds, prolonged expiratory - Cardiovascular Cardiovascular Exam: Present: regular rate, normal rhythm, normal heart sounds. Absent: bradycardia, tachycardia, irregular rhythm, systolic murmur, diastolic murmur, rubs, gallop - GI/Abdominal GI/Abdominal exam: Present: soft. Absent: distended, tenderness - Extremities Exam Extremities exam: Present: full ROM - Back Exam Back exam: Present: normal inspection, full ROM. Absent: tenderness, CVA tenderness (R), muscle spasm, paraspinal tenderness, vertebral tenderness, rash noted - Neurological Exam Neurological exam: Present: alert, oriented X3, normal gait - Psychiatric Psychiatric exam: Present: normal affect, normal mood - Skin Skin exam: Present: warm, dry, intact, normal color. Absent: rash ED Course Vital Signs 07/26/22 07/27/22 23:36 05:07 Temperature 98.3 F Pulse Rate 93 H 91 H Respiratory 18 18 Rate Blood Pressure 174/87 Blood Pressure 170/87 [Right] O2 Sat by Pulse 95 100 Oximetry - Reevaluation(s) Reevaluation #1: 07/27/22 09:52 Patient is speaking in full sentences with no signs of distress noted. ED Medical Decision Making - Medical Decision Making This is a 32-year-old female that presents with PNA and suspected covid. Patient is stable and was examined by me. Chest x-ray has been obtained and dictated by radiologist with PNA. Patient is notified of x-ray results with no questions noted. Patient does meet clinical concerns of COVID-19 and patient was instructed and educated on signs and symptoms and to self quarantine and seek medical attention as soon as possible if symptoms worsen and contiue. Will dc with zpack. Patient was instructed to increase hydration, rest and take Motrin for fever episodes. Patient received Rocephin, motrin and tesslone perrls in the ED. Vitals stable. Patient is nonfebrile and normal heart rate. P atlew was instructed Follow-up with a primary care doctor in 3-5 days or if symptoms worsen and continue return to emergency room as soon as possible. At time time of discharge, the patient does not seem toxic or ill in appearance. No acute signs of distress noted. Patient agrees to discharge treatment plan of care. No further questions noted by the patient. Critical care attestation.: If time is entered above; I have spent that time in minutes in the direct care of this critically ill patient, excluding procedure time. ED Disposition Clinical Impression: Suspected COVID-19 virus infection PNA (pneumonia) Qualifiers: Pneumonia type: due to unspecified organism Laterality: bilateral Lung location: unspecified part of lung Qualified Code(s): J18.9 - Pneumonia, unspecified organism Disposition: 01 HOME / SELF CARE / HOMELESS Is pt being admited?: No Does the pt Need Aspirin: No Condition: Stable Instructions: Bacterial Pneumonia (ED), Community-Acquired Pneumonia, Adult Additional Instructions: Follow-up with a primary care doctor in 3-5 days or if symptoms worsen and continue return to emergency room as soon as possible. Your symptoms appear most consistent with a PNA. However, given this current pandemic, COVID-19 is in the differential of possibilities. Despite your previous negative COVID-19 test, I do recommend repeat outpatient Covid 19 testing. In the meantime, isolate/quarantine yourself and stay away from anyone who is elderly, immunocompromised or chronically ill. Please see your nearest health department or primary care doctor that you are referred to for COVID testing. Increased rest, hydration, and take [id number] Tylenol as directed from instructions label for pain/fever episode. Prescriptions: Benzonatate [Tessalon Perles] 100 mg PO Q8HR PRN #12 cap PRN Reason: Cough Azithromycin [Zithromax Z-AUGUST] 250 mg PO DAILY #6 tab Referrals: PRIMARY CAREMD [Referring] - 3-5 Days COLLEEN DURON MD [Staff Physician] - 3-5 Days Time of Disposition: 09:59
== END 2022-07-27 10:27 | disposition home or self-care (01) ==
LOC: ED 23:16
DX: J18.9 Pneumonia, unspecified organism (principal); Z20.822 Contact with and (suspected) exposure to COVID-19; I10 Essential (primary) hypertension; F17.200 Nicotine dependence, unspecified, uncomplicated
CPT/HCPCS: 71046; 96372; 99283; J0696; J3490